=== PATIENT | male | born 1990 | race Caucasian/White ===

== ENCOUNTER 2023-05-20 00:15 | Emergency (ER) | payer SELFPAY ==
[~2023-05-20] VITALS: Ht 172.7 cm; Wt 104.8 kg
[2023-05-20] MEDS ORDERED: IBUPROFEN 400 MG TABLET PO ONE (01:00)
[2023-05-20] MEDS ORDERED: IBUPROFEN 400 MG TABLET ONE (01:03)
[2023-05-20 02:38] VITALS: BP 115/89; TEMP 98.1; O2SAT 98
== END 2023-05-20 02:34 | disposition home or self-care (01) ==
LOC: ER 00:23
DX: S13.8XXA Sprain of joints and ligaments of other parts of neck, initial encounter (principal); S00.33XA Contusion of nose, initial encounter; S09.8XXA Other specified injuries of head, initial encounter; V89.2XXA Person injured in unspecified motor-vehicle accident, traffic, initial encounter; Y93.89 Activity, other specified; Y92.89 Other specified places as the place of occurrence of the external cause; Y99.8 Other external cause status
CPT/HCPCS: 70450-TC; 70486-TC; 72125-TC